=== PATIENT | female | born 1965 | race African-American/Black ===

== ENCOUNTER 2017-12-12 09:57 | Outpatient (CLI) | payer BC | END 2017-12-12 09:58 | disposition home or self-care (01) | LOC: BICMAMMO 09:57 | PROVIDERS: ATTEND Advanced Practice Midwife | DX: N63.0 Unspecified lump in unspecified breast (principal); N63.20 Unspecified lump in the left breast, unspecified quadrant | CPT/HCPCS: G0206-LT; G0279 ==

== ENCOUNTER 2018-05-11 14:20 | Outpatient (CLI) | payer BC | END 2018-05-11 14:21 | disposition home or self-care (01) | LOC: BICMAMMO 14:20 | PROVIDERS: ATTEND Advanced Practice Midwife | DX: N63.0 Unspecified lump in unspecified breast (principal); R59.0 Localized enlarged lymph nodes; N63.21 Unspecified lump in the left breast, upper outer quadrant | CPT/HCPCS: 77066; G0279 ==

== ENCOUNTER 2018-07-27 12:06 | Outpatient (CLI) | payer BC ==
--- NOTE | 2018-07-27 13:05 | BD ---
BONE DENSITOMETRY USING DEXA: HISTORY: Postmenopausal screening for osteoporosis. LUMBAR SPINE BMD (g/cm2) T-SCORE Z-SCORE L1 0.926 -0.6 0.4 L2 0.950 -0.7 -0.5 L3 0.969 -1.0 -0.8 L4 1.019 -0.4 0.8 TOTAL 0.970 -0.7 -0.4 IMPRESSION: Osteopenia. POS: [facility]
== END 2018-07-27 12:07 | disposition home or self-care (01) ==
LOC: BICMAMMO 12:06
PROVIDERS: ATTEND Advanced Practice Midwife
DX: Z13.820 Encounter for screening for osteoporosis (principal); M85.80 Other specified disorders of bone density and structure, unspecified site
CPT/HCPCS: 77080

== ENCOUNTER 2018-11-12 14:24 | Outpatient (CLI) | payer BC ==
--- NOTE | 2018-11-12 17:37 | ULT ---
LEFT BREAST ULTRASOUND LIMITED: History: Patient returns for a six month follow up evaluation of the left breast. FINDINGS: Again noted in the left breast at 1 o'clock 7 cm from the nipple there is a somewhat poorly defined m ixed hyperechoic and slightly hypoechoic mass measuring approximately 0.7 x 1.1 x 1.0 cm, stable when compared to the prior exam of 05-11-18. In the left breast at 1 o'clock approximately 8 cm from the nipple in the region where there previous ly appeared to be two circumscribed hypoechoic masses felt to be intramamillary lymph nodes, there no w appears to be a mass measuring approximately 1.2 x 1.4 x 1.1 cm. Given this change from the prior e xamination of six months ago, I feel that an ultrasound guided biopsy is definitely needed. IMPRESSION: BIRADS category 4 - suspicious finding. Developing mass in the left breast 1 o'clock position 8 cm fr om the nipple. Ultrasound guided biopsy is recommended. This was discussed with the patient as well a s with Dr. Swan's nurse, Quynh, at the time of this dictation. The second finding in the left breast at 1 o'clock 7 cm from the nipple of mixed hyper and hypoechoic changes appears stable from the prior study but since this patient will need a biopsy of the mass at 1:00 8 cm from the nipple, I would definitely consider obtaining an ultrasound guided biopsy of this second mass at 1 o'clock 7 cm from the nipple at the same time, rather than continuing 6 month follo w up evaluation of it. POS: [facility]
== END 2018-11-12 14:25 | disposition home or self-care (01) ==
LOC: BICMAMMO 14:24
PROVIDERS: ATTEND Advanced Practice Midwife
DX: R92.8 Other abnormal and inconclusive findings on diagnostic imaging of breast (principal); N63.21 Unspecified lump in the left breast, upper outer quadrant
CPT/HCPCS: 77066; G0279

== ENCOUNTER 2018-11-16 12:12 | Outpatient (CLI) | payer BC | END 2018-11-16 12:13 | disposition home or self-care (01) | LOC: BICMAMMO 12:12 | PROVIDERS: ATTEND Advanced Practice Midwife | DX: N63.20 Unspecified lump in the left breast, unspecified quadrant (principal) | CPT/HCPCS: G0279 ==

== ENCOUNTER 2018-11-30 00:17 | Outpatient (CLI) | payer BC ==
[2018-11-30 13:01] LABS: #Basophils 0.1 thou/uL (0.0-0.2); #Lymphocytes 2.4 thou/uL (1.20-3.40); #Monocytes 0.3 thou/uL (0.11-0.59); #Neutrophils 3.8 thou/uL (1.40-6.50); %Basophils 1.5 % (0.0-1.0); %Eosinophils 0.7 % (0.0-10.0); %Lymphocytes 35.7 % (21.0-51.0); %Monocytes 5.1 % (0.0-10.0); Hemoglobin 13.7 g/dL (12.0-16.0); Mean Corpuscular HGB CONC 32.6 g/dL (32.0-36.0); Mean Corpuscular Hemoglobin 33.1 pg (27.0-31.0); Mean Platelet Volume 8.5 fL (7.4-10.4); Platelet Count 258 thou/uL (130-400); RBC Distribution Width 13.1 % (11.5-14.5); Red Blood Cell (RBC) Count 4.13 mill/uL (4.20-5.40); White Blood Cell (WBC) Count 6.7 thou/uL (4.8-10.8)
[2018-11-30 13:39] LABS: Anion Gap 14 mmol/L (10-20); BUN (Urea Nitrogen) 12 mg/dL (9.8-20.1); Calc. Creatinine Clearance 0 mL/min (70-130); Calcium 10.2 mg/dL (7.8-10.44); Carbon Dioxide 24 mmol/L (22-29); Chloride 106 mmol/L (98-107); Estimated GFR-MDRD 83; Glucose 90 mg/dL (70-105); Potassium 3.7 mmol/L (3.5-5.1); Sodium 140 mmol/L (136-145)
== END 2018-11-30 00:18 | disposition home or self-care (01) ==
LOC: LABBT 00:17
PROVIDERS: ATTEND Specialist
DX: Z01.818 Encounter for other preprocedural examination (principal); C50.912 Malignant neoplasm of unspecified site of left female breast
CPT/HCPCS: 80048; 85025; 93005; 93010

== ENCOUNTER 2018-12-06 06:43 | Day surgery (SDC) | payer BC ==
[2018-11-30 11:37] VITALS: BMI 28.4
[2018-12-06] MEDS ORDERED: Ketorolac Tromethamine 30 MG/ML VIAL ONE (09:28)
--- NOTE | 2018-12-06 09:33 | NM ---
NUCLEAR MEDICINE BREAST LYMPHOSCINTIGRAPHY: HISTORY: Malignant neoplasm of specified site of left female breast. COMPARISON: None. FINDINGS: A total of 4 aliquots of 0.1 mCi Technetium 99m filtered sulfur colloid was instilled into the periar eolar soft tissues. There is left axillary drainage. IMPRESSION: Regional left axillary lymph node radiotracer uptake. POS: [facility]
[2018-12-06] MEDS ORDERED: Isosulfan Blue 50 MG/5 ML VIAL ONE (11:47)
[2018-12-06] MEDS ORDERED: Bupivacaine HCl 0.5%/Epinephrine 1:200,000/PF 30 ml Vial ONE ×2 (11:47→13:57)
[2018-12-06] MEDS ORDERED: Lidocaine 2% PF 5 ML VIAL ONE (11:47)
[2018-12-06] MEDS ORDERED: Fentanyl 100 MCG/2 ML VIAL ONE ×2 (11:49→14:29)
[2018-12-06] MEDS ORDERED: hydrALAZINE 20 MG/ML VIAL ONE (14:26)
--- NOTE | 2018-12-06 15:07 | MMO ---
MAMMOGRAM OF A SURGICAL SPECIMEN: Date: 12/06/18 History of cancer and previous biopsy with clip. FINDINGS/IMPRESSION: Single radiograph of a specimen demonstrates a [place] wire with biopsy clip. Findings were conveyed to Dr. Weems on 12/06/18 at 1416 hours. CODE CR. POS: [facility]
[2018-12-06] MEDS ORDERED: Morphine 2 MG/ML SYRINGE ONE ×2 (15:21→15:42)
[2018-12-06] MEDS ORDERED: Ondansetron PF 4 MG/2 ML Vial ONE (15:36)
[2018-12-06] MEDS ORDERED: PROPOFOL 200 MG/20 ML VIAL ONE (15:36)
[2018-12-06] MEDS ORDERED: Lidocaine 1% PF 5 ML VIAL ONE (15:36)
[2018-12-06] MEDS ORDERED: ePHEDrine 50 MG/ML VIAL ONE (15:36)
[2018-12-06] MEDS ORDERED: PHENYLEPHRINE-NS 100 MCG/ML 10 ML SYRINGE ONE (15:36)
[2018-12-06] MEDS ORDERED: Ondansetron ODT 4 MG TAB ONE (16:21)
--- NOTE | 2018-12-06 16:33 | RAD ---
PORTABLE AP CHEST X-RAY 12/06/18 HISTORY: Post Mediport insertion. COMPARISON: None available. FINDINGS: A right subclavian Mediport catheter is noted in place with tip overlying the proximal SVC. No pneum othorax or pleural effusion is seen. There are linear densities present in the left perihilar region and left infrahilar region as well as at the left lung base which could be related to atelectasis or scarring. Followup evaluation is recommended. There is subcutaneous emphysema seen overlying the left lateral chest and axillary region. These are likely related to recent left breast surgery. No discre te pulmonary nodule or mass seen in the lungs bilaterally. Osseous structures appear intact. IMPRESSION: 1. Right subclavian Mediport catheter in place without evidence of pneumothorax. 2. Linear densities left lung base probably attributable to atelectasis and/or scarring. 3. Subcutaneous emphysema overlying the left lateral chest and breast likely related to recent p ostsurgical changes. POS: [facility]
--- NOTE | 2018-12-07 10:53 | OP ---
DATE OF PROCEDURE: 12/06/2018 PREOPERATIVE DIAGNOSIS: Left breast cancer. POSTOPERATIVE DIAGNOSIS: Left breast cancer. PROCEDURES PERFORMED: Placement of right subclavian low-profile power compatible MediPort, left breast lymphatic mapping, left axillary sentinel lymph node biopsy, left breast ultrasound-guided needle localization, and left breast needle localized lumpectomy. ANESTHESIA: General endotracheal. INDICATIONS: The patient is a 53-year-old black female. She had recently undergone imaging revealing a potentially concerning lesion in the upper outer left breast. This was biopsied revealing a high-grade triple negative breast cancer with a high Ki-67 result as well. Postoperative chemotherapy was recommended and therefore, MediPort will be placed. After discussing options regarding treatment of the cancer, she has elected to proceed with breast conservation surgery with a lumpectomy and sentinel lymph node biopsy. She underwent preoperative lymphoscintigraphy revealing sentinel lymph nodes within the left axilla. Due to the proximity of the cancer to her axilla, I plan to perform the lumpectomy and sentinel lymph node biopsy through the same extended incision. DESCRIPTION OF PROCEDURE: Informed consent was obtained. The patient was taken to the operating room, where general endotracheal anesthesia was obtained with the patient in supine position. 2.5 mL of Lymphazurin was infiltrated into the subdermal periareolar tissue of the left breast and massaged for 5 minutes. The breast and axilla were then prepped with ChloraPrep and draped in sterile fashion. Attention was turned first to the left breast malignancy. Ultrasound was utilized to map out the location of the cancer in the upper outer quadrant of the breast. I then utilized the ultrasound to place a localizing needle through the malignancy in a medial to lateral fashion. Then, utilizing the location of the cancer as well as the intended incision for the axillary surgery, I created an oblique incision extended somewhat inferiorly on the breast and angled superiorly up toward the axilla and crossing the inferior axillary line at the level of the hair-bearing tissue. Dissection was carried through skin and subcutaneous tissue. Attention was turned first to the sentinel lymph node. Neoprobe was utilized to identify areas of maximum radio intensity. I carefully dissected, revealing 3 separate sentinel lymph nodes. The first two of these were fairly densely blue-stained while the third one was radioactive, but not blue-stained. Each of these was dissected in similar fashion, dividing all investing lymphatics between clamps and 3-0 silk ties, and the lymph nodes were passed off the field for touch prep. The touch prep results on each of the three revealed no definite evidence of metastatic disease. Meticulous hemostasis was obtained within the axilla, and attention was turned to the breast cancer. Flaps were raised superiorly, inferiorly, and medially. The cancer was recognized to be relatively deep within the tissue and was resting immediately anterior to the muscle of the pectoralis. A wide lumpectomy excision was carried out around the localizing wire. I was concerned as I dissected down the medial aspect just below the wire insertion into the soft tissue that some of the tissue that I was going through could have been indurated/malignant. I, therefore, decided to obtain an additional medial margin. The remainder of the dissection around the wire encountered no suspicious tissue, and the specimen was removed intact. It was oriented with sutures and passed off the field for specimen mammography. This did reveal that the biopsy clip was present within the specimen. An additional 5-mm margin was obtained on the medial aspect of the lumpectomy cavity. This was also oriented with suture and then passed off the field. Meticulous hemostasis was obtained within the wound. The soft tissue between the lumpectomy cavity and the axillary dissection was closed with a running suture of 3-0 Monocryl. This effectively created 2 separate spaces. The overlying soft tissue was then approximated with a running suture of 3-0 Monocryl. Additional local anesthetic was infiltrated in the each dissection site. Skin edges were approximated with 4-0 Monocryl subcuticular suture, and Dermabond was placed externally. Before anything was done with the left breast, the right MediPort was placed. A large gauge needle was passed under the clavicle in the subclavian vein, and guidewire was passed through this needle, which was fluoroscopically confirmed to enter the superior vena cava. Additional local anesthetic was infiltrated, and a transverse incision was created based on the needle insertion site. Subcutaneous tissue was dissected, and a subcutaneous pocket was dissected inferiorly. Introducer dilator was passed over the guidewire under fluoroscopic guidance, and the introducer was removed in the usual peel-part fashion after the catheter had been passed through it. Catheter tip was positioned at the atriocaval junction, and the catheter was trimmed to appropriate length and secured to the locking hub of the MediPort. The port was placed within the subcutaneous pocket and secured in place with 2 interrupted sutures of 3-0 Prolene. The wound was closed in layers with 3-0 and 4-0 Monocryl suture. The port aspirated of blood freely and was flushed with heparinized saline. Postprocedure fluoroscopy demonstrated good position of the port and catheter. There were no complications with any portion of the operation. Blood loss was negligible throughout. She was taken to the recovery room in stable condition. Job ID: [id number]
== END 2018-12-06 16:42 | disposition home or self-care (01) ==
LOC: SDC 06:43
PROVIDERS: ATTEND Specialist
PROC: 0HBU0ZZ Excision of Left Breast, Open Approach (ICD-10-PCS; principal; 2018-12-06)
PROC: 05H533Z Insertion of Infusion Device into Right Subclavian Vein, Percutaneous Approach (ICD-10-PCS; principal; 2018-12-06)
PROC: B5161ZA Fluoroscopy of Right Subclavian Vein using Low Osmolar Contrast, Guidance (ICD-10-PCS; principal; 2018-12-06)
PROC: 0HBU0ZX Excision of Left Breast, Open Approach, Diagnostic (ICD-10-PCS; principal; 2018-12-06)
DX: D05.12 Intraductal carcinoma in situ of left breast (principal); I10 Essential (primary) hypertension; F17.210 Nicotine dependence, cigarettes, uncomplicated; Z79.899 Other long term (current) drug therapy
CPT/HCPCS: 71045; 76098; 78195; 88307; 88331; 88334; 88341; 88342; A9541; C1788; J0131; J0360; J0670; J1642; J1885; J2001; J2270; J2405; J2704; J3010; J3490; Q0162; Q9968

== ENCOUNTER 2018-12-14 11:25 | Outpatient (CLI) | payer BC ==
[2018-12-14 12:17] LABS: #Basophils 0.1 thou/uL (0.0-0.2); #Eosinphils 0.1 thou/uL (0.0-0.7); #Monocytes 0.4 thou/uL (0.11-0.59); #Neutrophils 4.6 thou/uL (1.40-6.50); %Basophils 0.7 % (0.0-1.0); %Eosinophils 0.8 % (0.0-10.0); %Lymphocytes 27.8 % (21.0-51.0); %Monocytes 6.2 % (0.0-10.0); %Neutrophils 64.5 % (42.0-75.0); Hemoglobin 12.4 g/dL (12.0-16.0); Mean Corpuscular HGB CONC 32.7 g/dL (32.0-36.0); Mean Corpuscular Hemoglobin 32.1 pg (27.0-31.0); Mean Corpuscular Volume 98.3 fL (78.0-98.0); Mean Platelet Volume 8.2 fL (7.4-10.4); Platelet Count 310 thou/uL (130-400); RBC Distribution Width 12.7 % (11.5-14.5); Red Blood Cell (RBC) Count 3.85 mill/uL (4.20-5.40); White Blood Cell (WBC) Count 7.1 thou/uL (4.8-10.8)
[2018-12-14 12:40] LABS: Anion Gap 14 mmol/L (10-20); BUN (Urea Nitrogen) 10 mg/dL (9.8-20.1); Calc. Creatinine Clearance 0 mL/min (70-130); Calcium 10.2 mg/dL (7.8-10.44); Carbon Dioxide 24 mmol/L (22-29); Chloride 106 mmol/L (98-107); Estimated GFR-MDRD Greater than 90; Glucose 92 mg/dL (70-105); Potassium 4.5 mmol/L (3.5-5.1); Sodium 139 mmol/L (136-145)
== END 2018-12-14 11:26 | disposition home or self-care (01) ==
LOC: LABBT 11:25
PROVIDERS: ATTEND Specialist
DX: Z01.812 Encounter for preprocedural laboratory examination (principal); C50.912 Malignant neoplasm of unspecified site of left female breast
CPT/HCPCS: 80048; 85025

== ENCOUNTER 2018-12-18 10:48 | Day surgery (SDC) | payer BC ==
[2018-12-14 11:09] VITALS: BMI 28.0
[2018-12-18] MEDS ORDERED: Ketorolac Tromethamine 30 MG/ML VIAL ONE (11:25)
[2018-12-18] MEDS ORDERED: PROPOFOL 200 MG/20 ML VIAL ONE (12:42)
[2018-12-18] MEDS ORDERED: Lidocaine 1% PF 5 ML VIAL ONE (12:42)
[2018-12-18] MEDS ORDERED: ePHEDrine 50 MG/ML VIAL ONE (12:42)
[2018-12-18] MEDS ORDERED: Bupivacaine/Epinephrine 0.25% 30 ML VIAL ONE (13:25)
[2018-12-18] MEDS ORDERED: Fentanyl 100 MCG/2 ML VIAL ONE (13:27)
--- NOTE | 2018-12-19 10:27 | OP ---
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 Her left breast lumpectomy that was performed a little over a week ago was negative for invasive cancer at the margins, however, there was ductal carcinoma in situ present at the anterior margin, was closed laterally. It was reportedly close posteriorly, however, the posterior margin was the pectoralis. The patient was returned to the operating room for re-excision of the lumpectomy cavity, primarily to focus on the anterior and lateral margins. DESCRIPTION OF OPERATION: Informed consent was obtained. The patient was taken to the operating room, where general endotracheal anesthesia was obtained. The patient was in supine position. Left breast was prepped with ChloraPrep and draped in sterile fashion. Local anesthetic was infiltrated in and around the incision using 0.25% Marcaine with epinephrine. The prior incision was reopened on the medial aspect. The incision was very nicely healed. Dissection was carried down into the lumpectomy cavity, where a seroma/hematoma was aspirated. The cavity was inspected. There was no visible or palpable abnormality. Again, it was confirmed that the posterior margin was in fact pectoralis, and there was no additional posterior margin to obtain. Attention was turned first anteriorly. The superior aspect of the anterior margin was shaved using Metzenbaum scissors, obtaining about 4 mm thickness up to the superior aspect of the wound of the cavity. This was tagged for orientation and submitted as the first specimen. I then obtained the inferior aspect of the anterior margin in a similar fashion and tagged this for orientation and submitted it as well. Finally, I resected the lateral margin, obtaining about a 5 mm thickness throughout. This was tagged for orientation and submitted to Pathology. The wound was then copiously irrigated. Meticulous hemostasis was obtained with electrocautery. I specifically did not enter the axilla as this was on the posterior aspect of the wound. The wound was then closed in layers with 3-0 and 4-0 Monocryl. Additional local anesthetic was instilled into the lumpectomy cavity. Dermabond was placed externally. There were no complications. The patient tolerated the procedure well and was taken to recovery in stable condition. Job ID: [id number]
== END 2018-12-18 16:05 | disposition home or self-care (01) ==
LOC: SDC 10:48
PROVIDERS: ATTEND Specialist
PROC: 0HBU0ZZ Excision of Left Breast, Open Approach (ICD-10-PCS; principal; 2018-12-18)
DX: C50.412 Malignant neoplasm of upper-outer quadrant of left female breast (principal); C77.9 Secondary and unspecified malignant neoplasm of lymph node, unspecified; F17.210 Nicotine dependence, cigarettes, uncomplicated; G47.00 Insomnia, unspecified; Z17.0 Estrogen receptor positive status [ER+]; I10 Essential (primary) hypertension; Z79.899 Other long term (current) drug therapy
CPT/HCPCS: 88305; J0131; J1885; J2001; J2704; J3010; J3490

== ENCOUNTER 2019-01-10 13:16 | Outpatient (CLI) | payer BC | END 2019-01-10 13:17 | disposition home or self-care (01) | LOC: ULT 13:16 | PROVIDERS: ATTEND Internal Medicine Hematology & Oncology | DX: Z51.11 Encounter for antineoplastic chemotherapy (principal); C50.412 Malignant neoplasm of upper-outer quadrant of left female breast; Z79.899 Other long term (current) drug therapy | CPT/HCPCS: 93306 ==

== ENCOUNTER 2019-04-30 10:38 | Day surgery (SDC) | payer BC ==
[2019-04-30] MEDS ORDERED: Sodium Chloride 0.9% 20 ML ONE (10:46)
[2019-04-30] MEDS ORDERED: Acetaminophen 500 MG TAB PO SCH (11:00)
[2019-04-30] MEDS ORDERED: diphenhydrAMINE 25 MG CAP PO SCH (11:00)
[2019-04-30 14:14] LABS: Hemoglobin 8.4 g/dL (12.0-16.0)
[2019-04-30 16:46] VITALS: BP 138/89; TEMP 98.7
== END 2019-04-30 17:00 | disposition home or self-care (01) ==
LOC: ONC/OP 10:38
PROVIDERS: ATTEND Internal Medicine Hematology & Oncology
PROC: 30233N1 Transfusion of Nonautologous Red Blood Cells into Peripheral Vein, Percutaneous Approach (ICD-10-PCS; principal; 2019-04-30)
DX: D64.9 Anemia, unspecified (principal); D69.6 Thrombocytopenia, unspecified
CPT/HCPCS: 36430; 36591; 85014; 85018; 86850; 86900; 86901; J1642; P9016; Q0163

== ENCOUNTER 2019-12-09 14:14 | Outpatient (CLI) | payer BC ==
--- NOTE | 2019-12-09 14:59 | MMO ---
Bilateral MAMMO Bilat Diag [facility]. CLINICAL HISTORY: Patient is 54 years old and is seen for diagnostic exam. The patient has no family history of breast cancer. The patient has a history of malignant (generic) in the left breast in October,. The patient has a history of left Ultrasound Guided Core Biopsy in November, - malignant and left Lumpectomy in November, - malignant - X 2. VIEWS: The views performed were: bilateral craniocaudal with tomosynthesis; bilateral mediolateral oblique with tomosynthesis; and bilateral mediolateral with tomosynthesis. FILMS COMPARED: The present examination has been compared to prior imaging studies performed at [facility] on 12/12/2017, 05/11/2018 and 11/12/2018, and at [facility] on 05/31/2017. This study has been interpreted with the assistance of computer-aided detection. MAMMOGRAM FINDINGS: The breasts are heterogeneously dense, which could obscure a lesion on mammography. There are post operative changes seen in the left breast. There are no suspicious masses, suspicious calcifications, or new areas of architectural distortion. IMPRESSION: THERE IS NO MAMMOGRAPHIC EVIDENCE OF MALIGNANCY. A ROUTINE FOLLOW-UP MAMMOGRAM IN 1 YEAR IS RECOMMENDED. THE RESULTS OF THIS EXAM WERE SENT TO THE PATIENT. ACR BI-RADS Category 2 - Benign finding MAMMOGRAPHY NOTE: 1. A negative mammogram report should not delay a biopsy if a dominant of clinically suspicious mass is present. 2. Approximately 10% to 15% of breast cancers are not detected by mammography. 3. Adenosis and dense breasts may obscure an underlying neoplasm. Reported by: Debbie HERNANDEZ Electonically Signed: [id number]
== END 2019-12-09 14:15 | disposition home or self-care (01) ==
LOC: BICMAMMO 14:14
PROVIDERS: ATTEND Specialist
DX: C50.412 Malignant neoplasm of upper-outer quadrant of left female breast (principal)
CPT/HCPCS: 77066; G0279

== ENCOUNTER 2020-12-10 14:27 | Outpatient (CLI) | payer BC ==
--- NOTE | 2020-12-10 14:56 | MMO ---
Bilateral MAMMO Bilat Diag [facility]. CLINICAL HISTORY: Patient is 55 years old and is seen for diagnostic exam. The patient has no family history of breast cancer. The patient has a history of malignant (generic) in the left breast in October,. The patient has a history of left Ultrasound Guided Core Biopsy in November, - malignant and left Lumpectomy in November, - malignant - X 2. VIEWS: The views performed were: bilateral craniocaudal with tomosynthesis; bilateral mediolateral oblique with tomosynthesis; and bilateral mediolateral with tomosynthesis. FILMS COMPARED: The present examination has been compared to prior imaging studies performed at [facility] on 12/12/2017, 05/11/2018, 11/12/2018 and 12/09/2019. This study has been interpreted with the assistance of computer-aided detection. MAMMOGRAM FINDINGS: The breasts are heterogeneously dense, which could obscure a lesion on mammography. There are stable post operative changes seen in the left breast. There are no suspicious masses, suspicious calcifications, or new areas of architectural distortion. IMPRESSION: THERE IS NO MAMMOGRAPHIC EVIDENCE OF MALIGNANCY. A ROUTINE FOLLOW-UP MAMMOGRAM IN 1 YEAR IS RECOMMENDED. THE RESULTS OF THIS EXAM WERE SENT TO THE PATIENT. ACR BI-RADS Category 2 - Benign finding MAMMOGRAPHY NOTE: 1. A negative mammogram report should not delay a biopsy if a dominant of clinically suspicious mass is present. 2. Approximately 10% to 15% of breast cancers are not detected by mammography. 3. Adenosis and dense breasts may obscure an underlying neoplasm. Reported by: EDUARDA HENDERSON MD Electonically Signed: [id number]
== END 2020-12-10 14:28 | disposition home or self-care (01) ==
LOC: BICMAMMO 14:27
PROVIDERS: ATTEND Specialist
DX: Z08 Encounter for follow-up examination after completed treatment for malignant neoplasm (principal); Z85.3 Personal history of malignant neoplasm of breast
CPT/HCPCS: 77066; G0279

== ENCOUNTER 2021-07-16 14:23 | Outpatient (CLI) | payer BC | END 2021-07-16 14:24 | disposition home or self-care (01) | LOC: BICRAD 14:23 | PROVIDERS: ATTEND Family Medicine | DX: M25.561 Pain in right knee (principal); M17.11 Unilateral primary osteoarthritis, right knee ==

== ENCOUNTER 2021-07-26 13:47 | Outpatient (CLI) | payer BC | END 2021-07-26 13:48 | disposition home or self-care (01) | LOC: BICMAMMO 13:47 | PROVIDERS: ATTEND Advanced Practice Midwife | DX: Z13.820 Encounter for screening for osteoporosis (principal); M85.89 Other specified disorders of bone density and structure, multiple sites | CPT/HCPCS: 77080 ==

== ENCOUNTER 2021-12-13 14:23 | Outpatient (CLI) | payer BC | END 2021-12-13 14:24 | disposition home or self-care (01) | LOC: BICMAMMO 14:23 | PROVIDERS: ATTEND Internal Medicine Hematology & Oncology | DX: Z08 Encounter for follow-up examination after completed treatment for malignant neoplasm (principal); Z85.3 Personal history of malignant neoplasm of breast | CPT/HCPCS: 77066; G0279 ==

== ENCOUNTER 2022-12-15 12:57 | Outpatient (CLI) | payer BC | END 2022-12-15 12:58 | disposition home or self-care (01) | LOC: BICMAMMO 12:57 | PROVIDERS: ATTEND Internal Medicine Hematology & Oncology | DX: C50.912 Malignant neoplasm of unspecified site of left female breast (principal); Z98.890 Other specified postprocedural states | CPT/HCPCS: 77066; G0279 ==

== ENCOUNTER 2024-09-22 13:46 | Emergency (ER) | payer BC ==
[~2024-09-22 13:46] MED LIST: Iopamidol-370 76% 500 ML MDV (1 ML CHARGE) ONE
[2024-09-22] MEDS ORDERED: Acetaminophen 325 MG TAB ONE (14:01)
[2024-09-22 14:16] LABS: Actual Bicarbonate (HCO3v) 24.7 mEq/L (22-28); Base Excess 1.6 mEq/L (-2.0 to +3.0); Calcium, Ionized (venous) 1.15 mmol/L (1.16-1.32); Chloride (VBG) 101 mmol/L (98-106); Hematocrit-VBG 41 % (36.0-47.0); Potassium (VBG) 5.05 mmol/L (3.70-5.30); Sodium 138 mmol/L (133-146); pH (venous) 7.476 (7.32-7.43)
[2024-09-22 14:22] LABS: #Basophils Less than 0.03 10x3/uL (0.0-0.2); #Eosinophils Less than 0.03 10x3/uL (0.0-0.7); %Basophils 0.2 % (0.0-1.0); %Eosinophils 0.3 % (0.0-10.0); %Lymphocytes 17.3 % (21.0-51.0); %Monocytes 5.9 % (0.0-10.0); Hematocrit 37.6 % (36.0-47.0); Hemoglobin 13.1 g/dL (12.0-16.0); Mean Corpuscular HGB CONC 34.8 g/dL (32.0-36.0); Mean Corpuscular Hemoglobin 32.8 pg (27.0-31.0); Mean Platelet Volume 10.5 fL (7.4-10.4); Platelet Count 218 10x3/uL (130-400); RBC Distribution Width 14.9 % (11.5-14.5)
[2024-09-22] MEDS ORDERED: Sodium Chloride 0.9% 100 ML ONE (15:20)
[2024-09-22] MEDS ORDERED: Azithromycin 500 MG VIAL ONE (15:20)
[2024-09-22] MEDS ORDERED: cefTRIAXone (ROCEPHIN) 2 GM VIAL ONE (15:20)
[2024-09-22 15:38] LABS: Chloride 103 mmol/L (98-107); Potassium 3.5 mmol/L (3.5-5.1); Sodium 136 mmol/L (136-145)
[2024-09-22 15:38] LABS: Bilirubin Negative (Negative); Blood, Urine 2+ (Negative); CAUTI Indications for Culture Pelvic or flank pain; Clarity Turbid (Clear); Glucose, Urine (Dipstick) Normal (Negative); Ketone, Urine Negative (Negative); Leukocyte 500 Leu/uL (Negative); Nitrite Negative (Negative); Protein, Urine (Dipstick) 20 mg/dL (Neg-Trace); Urobilinogen Normal mg/dL (Less than 2); pH, Urine 5.5 (5.0-9.0)
[2024-09-22 15:39] LABS: Albumin 3.8 g/dL (3.4-4.8); Calcium 9.7 mg/dL (7.8-10.44); Glucose 123 mg/dL (80-115)
[2024-09-22 15:40] LABS: Globulin 3.8 g/dL (2.4-3.5); Protein, Total 7.6 g/dL (5.8-8.1)
[2024-09-22 15:41] LABS: Anion Gap 14 mmol/L (10-20); Carbon Dioxide 23 mmol/L (23-31)
[2024-09-22 15:42] LABS: Alkaline Phosphatase 83 U/L (40-110); Bilirubin, Total 0.3 mg/dL (0.2-1.2)
[2024-09-22 15:44] LABS: BUN (Urea Nitrogen) 14 mg/dL (9.8-20.1); Calc. Creatinine Clearance 0 mL/min (70-130); Estimated GFR 79
[2024-09-22 15:45] LABS: ALT (SGPT) 18 U/L (8-55); AST (SGOT) 25 U/L (5-34)
[2024-09-22 16:00] LABS: Bacteria/HPF 3+ HPF (None Seen); RBC/HPF 0-3 HPF (0-3)
[2024-09-22 16:02] LABS: Urine Culture Reflex Yes Yes
== END 2024-09-22 17:45 | disposition home or self-care (01) ==
LOC: ERS 13:46
DX: J10.1 Influenza due to other identified influenza virus with other respiratory manifestations (principal); N39.0 Urinary tract infection, site not specified
CPT/HCPCS: 36416; 71275; 80053; 81001; 82805; 83605; 85025; 87040; 87086; 87428; 94760; 96365; 96375; J0456; J0696